=== PATIENT | male | born 1950 | race Caucasian/White ===

== ENCOUNTER 2024-12-24 13:53 | Outpatient (RCR) | payer MEDICARE, OTHER, SELFPAY ==
[2024-12-24 14:02] VITALS: BP 122/61; PULSE 60
== END 2025-01-21 14:41 | disposition home or self-care (01) ==
LOC: HO.PT 13:53
PROVIDERS: PCP Internal Medicine; Visit Provider Physician Assistant
DX: R42 Dizziness and giddiness (principal)
CPT/HCPCS: 97112; 97161